=== PATIENT | male | born 1955 | race African-American/Black ===

== ENCOUNTER 2020-12-09 17:03 | Emergency (ER) | payer MEDICAID ==
[~2020-12-09] VITALS: Ht 175.3 cm; Wt 68.0 kg
--- NOTE | 2020-12-09 17:30 | NUR ---
PT REFUSING TO ANSWER QUESTIONS FOR RN. PT FOUND RUNNING NAKED, + FOR ETOH. 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 PIV PLACED FROM EMS.
[2020-12-09 18:37] LABS: BASOPHILS % (AUTO) 1 % (0-1); EOSINOPHILS % (AUTO) 4 % (1-7); LYMPHOCYTES % (AUTO) 16 % (22-44); MEAN CORPUSCULAR HGB CONC 32.1 g/dL (33.2-36.2); MEAN PLATELET VOLUME 8.6 fL (7.4-10.4); MONOCYTES % (AUTO) 9 % (2-9); NEUTROPHILS % (AUTO) 72 % (42-75); PLATELET COUNT 205 x10^3/uL (130-400); RED BLOOD COUNT 4.42 x10^6/uL (4.38-5.82); RED CELL DISTRIBUTION WIDTH 14.8 % (9.4-14.8)
[2020-12-09 18:42] LABS: ALBUMIN 3.3 g/dL (3.4-5.0); CALCIUM 9.5 mg/dL (8.5-10.1); CHLORIDE 111 mmol/L (98-107)
[2020-12-09 18:48] LABS: ALANINE AMINOTRANSFERASE 26 U/L (12-78); ALKALINE PHOSPHATASE 157 U/L (45-117); ANION GAP 4 mmol/L (5-15); BILIRUBIN,TOTAL 0.4 mg/dL (0.2-1.0); TOTAL PROTEIN 7.3 g/dL (6.4-8.2)
[2020-12-09 18:50] LABS: SALICYLATE LEVEL < 1.7 mg/dL (2.8-20.0)
--- NOTE | 2020-12-09 18:58 | NUR ---
PT STILL SLEEPING AND REFUSING TO ANSWER QUESTIONS. RESP EVEN AND UNLABORED
--- NOTE | 2020-12-09 19:30 | NUR ---
SON AT BEDSIDE. DR DAVENPORT AWARE. SON REPORTS PT USES "CRACK" IN THE PAST BUT STATES "MY DAD HAS NEVER BEEN A DRINKER". SON ALSO STATES PTS BEHAVIOR IS "ODD" AND "I'M NOT SURE IF MY DAD GOT A BAD BATCH OR WHAT". DR DAVENPORT TO ORDER 1 LITER OF NS AND [address] FURTHER ORDERS. EMS GAVE [address] DAVENPORT AWARE.
--- NOTE | 2020-12-09 19:56 | NUR ---
WHEN ASKED HOW HE IS FEELING PT RESPONDS "FINE" WITHOUT OPENING EYES. PT TOLD ABOUT NEEDING KAYCEE. NO REPOSNSE FROM PT.
[2020-12-09] MEDS ORDERED: SODIUM CHLORIDE 0.9% 1,000ML IVBOLUS ONE (20:00)
[2020-12-09 21:25] LABS: AMPHETAMINE SCREEN, URINE Positive (Negative); BARBITURATE SCREEN, URINE Negative (Negative); BENZODIAZEPINE SCREEN, URINE Negative (Negative); CANNABINOID SCREEN, URINE Positive (Negative); COCAINE SCREEN, URINE Negative (Negative); METHADONE SCREEN, URINE Negative (Negative); OPIATE SCREEN, URINE Positive (Negative)
--- NOTE | 2020-12-09 21:26 | NUR ---
PT STILL SLEEPING, RESP EVEN AND UNLABORED. NOT OPENING EYES OR SPEAKING. DAUGHTER AND SON IN LAW AT BEDSIDE NOW. PT STILL SLEEPING. DAUGHTER BABITA [phone] AND ALIYAH SALDANA [phone].
--- NOTE | 2020-12-09 22:53 | NUR ---
RELIEF RN: ATTEMPTED TO DC PT HOME. PT SLEEPING, DIFFICULT TO ARROUSE.
[2020-12-10 00:08] VITALS: BP 163/112
--- NOTE | 2020-12-10 00:09 | NUR ---
PT AWAKENING TO VERBAL STIMULI. KNOWS HE IS IN THE HOSPITAL AND REMEBERS WHY BUT BELIEVES HE IS IN [facility]. PT CLOSES EYES MID CONVERSATION.
--- NOTE | 2020-12-10 01:59 | NUR ---
PT MORE ALERT. SPEAKING AND TALKING IN CLEAR SENTENCES. ABLE TO DRESS SELF. UP FOR DC. GIVEN FAMILYS PHONE NUMBERS.
== END 2020-12-10 02:19 | disposition home or self-care (01) ==
LOC: ED 17:33
DX: F15.129 Other stimulant abuse with intoxication, unspecified (principal); R41.0 Disorientation, unspecified; E11.9 Type 2 diabetes mellitus without complications
CPT/HCPCS: 36415; 70450; 80053; 80299; 80307; 80320; 82962; 83690; 85025; 99285; J7030; 80329; G0480